=== PATIENT | female | born 1970 | race Caucasian/White ===

== ENCOUNTER 2017-12-08 07:20 | Day surgery (SDC) | payer OTHER ==
[2017-12-07 17:07] VITALS: BMI 33.0
--- NOTE | 2017-12-08 09:11 | HP ---
Satellite [facility] - Chief Complaint Chief Complaint: right hand pain, numbness, weakness History of Present Illness: right CTS History Source: Patient Limitations to Obtaining History: No Limitations - Past Medical History Allergies/Adverse Reactions: Allergies Allergy/AdvReac Type Severity Reaction Status Date / Time Penicillins Allergy Verified 12/08/17 08:20 Cardiovascular: Yes: HTN ...LMP: 03/12/14 - Current Medications Current Medications: Home Medications Medication Instructions Recorded Divalproex Sodium [Depakote] 1,000 mg PO BID 04/17/12 Quetiapine Fumarate [Seroquel -] 350 mg PO HS 04/17/12 Levothyroxine [Synthroid -] 75 mcg PO DAILY 03/25/14 Amlodipine Besylate 5 mg PO DAILY 12/07/17 Hydrochlorothiazide [Hctz -] 12.5 mg PO DAILY 12/07/17 Losartan Potassium 100 mg PO DAILY 12/07/17 Metoprolol Succinate [Toprol Xl] 25 mg PO DAILY 12/07/17 Sertraline HCl [Zoloft -] 50 mg PO DAILY 12/07/17 Satellite Physical Exam - Physical Examination Vital Signs: Vital Signs Period Temp Pulse Resp BP Sys/Davis Pulse Ox Last 24 Hr 97.9 F 98 18 157/98 95 General Appearance: Well Nourished ENT: Clear Lung: Clear to auscultation Heart: Regular rate & rhythm Breasts: Soft Abdomen: Soft Extremities: No edema Satellite Impression/Plan - Impression/Plan Impression: right CTS Operative Procedure: right CTR Date to be Performed: 12/08/17
--- NOTE | 2017-12-08 09:14 | OP ---
Operative Note - Note: Operative Date: 12/08/17 Pre-Operative Diagnosis: right CTS Operation: right CTR, tenosynovectomy Post-Operative Diagnosis: Same as Pre-op Surgeon: Ac Alexander Anesthesiologist/GEM TECHNICIAN: Nessa Sierra MD Anesthesia: Local, MAC Specimens Removed: tenosynovium Estimated Blood Loss (mls): 0 Drains, Volume Out (mls): 0 Blood Volume Replaced (mls): 0 Fluid Volume Replaced (mls): 500 Operative Report Dictated: Yes
[2017-12-08] MEDS ORDERED: MIDAZOLAM HCL 2 MG/2 ML SINGLE DOSE VIAL ONE (09:27)
[2017-12-08] MEDS ORDERED: SUCCINYLCHOLINE CHLORIDE 200 MG/10 ML VIAL ONE (09:29)
[2017-12-08] MEDS ORDERED: PROPOFOL 20 ML ONE (09:29)
[2017-12-08] MEDS ORDERED: CLINDAMYCIN PHOSPHATE 600 MG/4 ML VIAL IVPB ONE (09:47)
[2017-12-08] MEDS ORDERED: CLINDAMYCIN PHOSPHATE 600 MG/4 ML VIAL ONE (09:48)
[2017-12-08] MEDS ORDERED: ONDANSETRON 4 MG/2 ML VIAL IVPUSH PRN (10:24)
[2017-12-08] MEDS ORDERED: oxyCODONE HCL 5 MG TABLET PO PRN (10:24)
[2017-12-08] MEDS ORDERED: LACTATED RINGERS SOLUTION 1,000 ML IV SCH (10:30)
[2017-12-08 10:57] VITALS: TEMP 98
[2017-12-08 12:15] VITALS: BP 130/93; PULSE 95
--- NOTE | 2017-12-08 12:59 | SPEC ---
DATE OF SURGERY: 12/08/2017 PREOPERATIVE DIAGNOSIS: Right carpal tunnel syndrome. POSTOPERATIVE DIAGNOSIS: Right carpal tunnel syndrome. OPERATION: Right carpal tunnel release and tenosynovectomy. SURGEON: Ac Alexander M.D. ASSISTANTS: None. ANESTHESIA: MAC, local injection with 12 mL of 0.5% Marcaine and 1% Lidocaine mix. ANESTHESIOLOGIST: Nessa Sierra MD DRAINS: None. COMPLICATIONS: None. SPECIMENS: Tenosynovium, right wrist. BLOOD LOSS: None. BLOOD GIVEN: None. FLUID REPLACEMENT: 500 mL INDICATIONS: This patient is a 47-year-old female with a preoperative diagnosis of severe right carpal tunnel syndrome. After understanding the potential risks, complications, alternatives and benefits of surgery versus nonsurgical treatment, the patient elected to undergo this procedure. DESCRIPTION OF PROCEDURE: The patient was brought to the operating room, peripheral IV placed and intravenous sedation was given. One gram of intravenous Ancef was given. MAC anesthesia was induced. A tourniquet was applied to the right upper arm and the right upper extremity was prepped and draped in sterile fashion. The entire case was done under 3.8 loupe magnification. A marking pen was utilized to waldemar out a longitudinal incision in an already existing skin crease. Twenty mL of 0.5% Marcaine mixed with 1% Lidocaine was injected in and around the surgical incision. The right upper extremity was elevated, exsanguinated with an Esmarch bandage and the tourniquet inflated to 250 mmHg. A No. 15 scalpel blade was utilized to cut down through the skin. Subcutaneous hemostasis was achieved with the bipolar cautery. Dissection was done through the superficial palmar fascia. Self-retaining retractors were placed into the wound. Under direct visualization, the transverse carpal ligament was transected with a No. 15 scalpel blade, exposing the median nerve and the contents of the carpal tunnel. The distal and proximal extents of the release were completed with a Littler scissor and checked with irrigation and my small finger. They were seen to be complete. Limited dissection was done on the radial side of the median nerve and more extensive dissection was done on the ulnar side of the median nerve. The patients nerve was seen to be quite compressed by epineurium and therefore a limited epineurotomy was performed. A Ragnell retractor was used to gently retract the median nerve in a radial direction. The patient had a lot of tenosynovitis and therefore a tenosynovectomy was performed off all 9 flexor tendons. This was passed off the field as tenosynovium right wrist. The floor of the carpal tunnel was checked. There were no abnormal masses or ganglion cysts. The area was copiously irrigated and washed out and closure begun. Undyed 4-0 Vicryl was used to close the deep dermal layer. Final skin reapproximation was done with horizontal mattress 4-0 nylon sutures. The area was then washed and dried, covered with Xeroform, 4x4s, fluffs between the fingers, Webril and a 4-inch plaster roll was utilized to make a volar splint, which was then wrapped with Nigel and Coban. The tourniquet was taken down after a total tourniquet time of minutes. There were no complications during the case. The patient tolerated the procedure well and was brought to the ambulatory recovery room in stable condition. Kennedy [id number]
--- NOTE | 2017-12-09 13:27 | PATH ---
Surgical Pathology Report Patient Name: JOANNA RECIO [facility]. Rec. #: [id number] /Age/Gender: 1970 (Age: 47) / F Account: [id number] [facility] [facility] Taken: 12/08/2017 Received: 12/08/2017 Reported: 12/09/2017 Physicians: Ac Alexander M.D. Specimen(s) Received RIGHT TENOSYNOVIUM Clinical History Right carpal tunnel syndrome Final Diagnosis TENOSYNOVIUM, RIGHT, EXCISION: BENIGN DENSE FIBROCONNECTIVE TISSUE. Electronically Signed Meenu Jackson M.D. Gross Description Received in formalin labeled "right tenosynovium," is a 1.8 x 1.2 x 0.2 cm aggregate of multiple bernal-yellow, irregular portions of soft tissue, consistent with tenosynovium. The specimen is entirely submitted in one cassette. /12/08/201712/08/2017
== END 2017-12-08 12:31 | disposition home or self-care (01) ==
LOC: JASU-SURG 07:20
PROVIDERS: ATTEND Orthopaedic Surgery
PROC: 01N50ZZ Release Median Nerve, Open Approach (ICD-10-PCS; principal; 2017-12-08 09:00)
DX: G56.01 Carpal tunnel syndrome, right upper limb (principal)
CPT/HCPCS: 88304-TC; 94760

== ENCOUNTER 2018-03-14 06:22 | Emergency (ER) | payer OTHER ==
--- NOTE | 2018-03-14 07:11 | PDOC ---
History of Present Illness - General Chief Complaint: Shortness of Breath Stated Complaint: S.O.B. Time Seen by Provider: 03/14/18 07:09 - History of Present Illness Initial Comments: 03/14/18 07:10 Ms. Nobles is a 47 yo female w/ pmh of HTN, Bipolar disorder, anxiety, s/p partial hysterectomy who presents for evaluation after 2 week history of cough, congestion, increased anxiety, and chest pain with cough. She reports she started taking antibiotics over a week ago proscribed over the phone by her PCP (cannot recall their name) and has finished her entire course, however she does not feel better yet. She has no other complaints at this time. The patient denies headache and dizziness. Denies fever, chills, nausea, vomit, diarrhea and constipation. Denies dysuria, frequency, urgency and hematuria. Allergies: Penicillins Past History - Past Medical History Allergies/Adverse Reactions: Allergies Allergy/AdvReac Type Severity Reaction Status Date / Time Penicillins Allergy Verified 03/14/18 07:14 Home Medications: Ambulatory Orders Divalproex [Depakote -] 1,500 mg PO DAILY 03/14/18 Levothyroxine [Synthroid -] 25 mcg PO DAILY 03/14/18 Quetiapine Fumarate [Seroquel] 350 mg PO DAILY 03/14/18 Sertraline HCl [Zoloft] 50 mg PO DAILY 03/14/18 Anemia: No Asthma: No Cancer: No Cardiac Disorders: No CVA: No COPD: No CHF: No Dementia: No Diabetes: No GI Disorders: No Disorders: No HTN: Yes Hypercholesterolemia: No Liver Disease: No Seizures: No Thyroid Disease: Yes - Surgical History Abdominal Surgery: Yes (Myomectomy) Appendectomy: No Cardiac Surgery: No Cholecystectomy: No Lung Surgery: No Neurologic Surgery: No Orthopedic Surgery: Yes (fx wrist) - Immunization History Immunization Up to Date: Yes - Suicide/Smoking/Psychosocial Hx Smoking Status: Yes Smoking History: Current every day smoker Have you smoked in the past 12 months: Yes Number of Cigarettes Smoked Daily: 15 'Breaking Loose' booklet given: 12/07/17 Hx Alcohol Use: Yes (weekly) Drug/Substance Use Hx: No Substance Use Type: Alcohol Hx Substance Use Treatment: Yes Review of Systems - Review of Systems Comments:: 03/14/18 07:11 GENERAL/CONSTITUTIONAL: No fever or chills. No weakness. HEAD, EYES, EARS, NOSE AND THROAT: No change in vision. No ear pain or discharge. No sore throat. CARDIOVASCULAR: +Pain with cough (now decreased). Occasional shortness of breath RESPIRATORY: +Cough, no wheezing or hemoptysis. GASTROINTESTINAL: No nausea, vomiting, diarrhea or constipation. GENITOURINARY: No dysuria, frequency, or change in urination. MUSCULOSKELETAL: No joint or muscle swelling or pain. No neck or back pain. SKIN: No rash NEUROLOGIC: No headache, vertigo, loss of consciousness, or change in strength/ sensation. ENDOCRINE: No increased thirst. No abnormal weight change HEMATOLOGIC/LYMPHATIC: No anemia, easy bleeding, or history of blood clots. ALLERGIC/IMMUNOLOGIC: No hives or skin allergy. *Physical Exam - Physical Exam Comments: 03/14/18 07:11 GENERAL: Awake, alert, and fully oriented, in no acute distress HEAD: No signs of trauma, normocephalic, atraumatic EYES: PERRLA, EOMI, sclera anicteric, conjunctiva clear ENT: Auricles normal inspection, hearing grossly normal, nares patent, oropharynx clear without exudates. Moist mucosa NECK: Normal ROM, supple, no lymphadenopathy, JVD, or masses LUNGS: +Minor diffuse wheezes, No distress, speaks full sentences. HEART: Regular rate and rhythm, normal S1 and S2, no murmurs, rubs or gallops, peripheral pulses normal and equal bilaterally. ABDOMEN: Soft, nontender, normoactive bowel sounds. No guarding, no rebound. No masses EXTREMITIES: Normal inspection, Normal range of motion, no edema. No clubbing or cyanosis. NEUROLOGICAL: Cranial nerves II through XII grossly intact. Normal speech, normal gait, no focal sensorimotor deficits SKIN: Warm, Dry, normal turgor, no rashes or lesions noted. ED Treatment Course - LABORATORY CBC & Chemistry Diagram: 03/14/18 07:45 03/14/18 07:45 Medical Decision Making - Medical Decision Making 03/14/18 07:44 Ms. Nobles is a 47 yo female w/ pmh as described who presents w/ symptoms of continuing viral illness. EKG/CXR/cardiac panel sent to evaluate for acute process. 03/14/18 09:21 Patient EKG regular rate, regular rhythm, no st elevations or depression, normal access, normal interval, normal EKG. Chest XR negative for acute process. Labs grossly wnl as below. No concern for acute process at this time. Discharging patient with instructions to f/u w/ PCP for further evaluation as needed with medrol pack and z-medardo. Laboratory Results - last 24 hr 03/14/18 03/14/18 07:45 07:45 WBC 5.9 RBC 4.18 Hgb 14.1 Hct 40.0 MCV 95.7 MCH 33.6 MCHC 35.1 RDW 13.7 Plt Count 199 D MPV 7.0 L D Neutrophils % 73.1 Lymphocytes % 20.5 D Monocytes % 3.8 Eosinophils % 1.8 Basophils % 0.8 Nucleated RBC % 0 Sodium 136 Potassium 4.3 Chloride 103 Carbon Dioxide 25 Anion Gap 8 BUN 7 Creatinine 0.5 L Creat Clearance w eGFR > 60 Random Glucose 85 Calcium 8.5 Total Bilirubin 0.3 AST 42 H ALT 70 Alkaline Phosphatase 82 Creatine Kinase 81 Troponin I < 0.02 Total Protein 7.6 Albumin 3.5 TSH 2.78 03/14/18 09:23 *DC/Admit/Observation/Transfer Diagnosis at time of Disposition: Upper respiratory infection Qualifiers: URI type: unspecified URI Qualified Code(s): J06.9 - Acute upper respiratory infection, unspecified - Discharge Dispostion Disposition: HOME Condition at time of disposition: Fair - Referrals Referrals: Scott Sarabia MD [Primary Care Provider] - - Patient Instructions Printed Discharge Instructions: DI for Viral Upper Respiratory Infection -- Adult Additional Instructions: Please return to ER if any pain, fever, chills, or other concerning symptoms. Follow-up with primary care provider for further evaluation later this week. - Post Discharge Activity Forms/Work/School Notes: Back to Work
[2018-03-14 07:13] VITALS: BMI 32.3
[2018-03-14] MEDS ORDERED: ALBUTEROL SO4 2.5/IPRATROPIUM 0.5 INH SOL 3 ML VIAL.NEB. NEB ONE (07:34)
[2018-03-14 07:55] LABS: BASO % 0.8 % (0-2.0); EOS % 1.8 % (0-4.5); HEMOGLOBIN 14.1 GM/dL (10.7-15.3); LYMPH % 20.5 % (8-40); MCH 33.6 pg (25.7-33.7); MCHC 35.1 g/dl (32.0-36.0); MEAN CELL VOLUME 95.7 fl (80-96); MONO % 3.8 % (3.8-10.2); NEUT % 73.1 % (42.8-82.8); PLATELET COUNT 199 K/MM3 (134-434); RBC 4.18 M/mm3 (3.60-5.2); RDW 13.7 % (11.6-15.6); WHITE BLOOD COUNT 5.9 K/mm3 (4.0-10.0)
[2018-03-14 08:38] LABS: ALBUMIN 3.5 g/dl (3.4-5.0); ANION GAP 8 (8-16); BLOOD UREA NITROGEN 7 mg/dL (7-18); CALCIUM 8.5 mg/dL (8.5-10.1); CHLORIDE 103 mmol/L (98-107); CO2 25 mmol/L (21-32); CREATININE 0.5 mg/dL (0.55-1.02); GLUCOSE,RANDOM 85 mg/dL (74-106); POTASSIUM 4.3 mmol/L (3.5-5.1); SGOT/AST 42 U/L (15-37); SGPT/ALT 70 U/L (12-78); SODIUM 136 mmol/L (136-145); TOT PROT 7.6 g/dl (6.4-8.2)
[2018-03-14 08:47] LABS: ALK PHOS 82 U/L (45-117); BILIRUBIN,TOTAL 0.3 mg/dL (0.2-1.0)
[2018-03-14 09:37] VITALS: BP 144/86; PULSE 105; TEMP 98
--- NOTE | 2018-03-14 09:44 | PDOC ---
Attending Attestation - Resident Resident Name: Khalif Eaton - ED Attending Attestation I have performed the following: I have examined & evaluated the patient, The case was reviewed & discussed with the resident, I agree w/resident's findings & plan - HPI HPI: 03/14/18 09:41 47-year-old female active smoker presents with URI symptoms for a few days and persisting cough/chest congestion. No specific exertional chest pressure, just congestion in her chest with occasionally productive cough. 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 Never diagnosed with COPD. - Physicial Exam PE: 03/14/18 09:41 Vitals as noted, O2 sat 98% on room air after nebulizer Seated comfortably in stretcher, speaking full sentences, no acute respiratory distress Heart is regular, lungs are clear, prior noted wheezing resolved after nebulizer. No focally decreased breath sounds, no accessory muscle use No edema - Medical Decision Making 03/14/18 09:43 47-year-old female active smoker presents with persistent bronchitis/reactive airway in the setting of URI. rule out pneumonia, already completed course of antibiotics and has no evidence of acute infectious process. Trial of nebulizers with improvement symptoms Labs, EKG, chest x-ray all within normal limits We'll give course of steroids Primary care follow-up, understands return criteria Heart Score/ECG Review #1 ECG reviewed & interpreted by me at: 07:02 General ECG Interpretation: Sinus Rhythm, Normal Rate (100), Normal Intervals ( qtc 448), No acute ischemic changes
--- NOTE | 2018-03-14 13:33 | EKG ---
Test Reason : Blood Pressure : / mmHG Vent. Rate : 100 BPM Atrial Rate : 100 BPM P-R Int : 146 ms QRS Dur : 080 ms QT Int : 348 ms P-R-T Axes : 048 013 033 degrees QTc Int : 448 ms NORMAL SINUS RHYTHM NORMAL ECG Confirmed by MD Velasquez Edward ([id number]) on 03/14/2018 1:32:53 PM Referred By: Confirmed By:Peng Velasquez MD
== END 2018-03-14 09:36 | disposition home or self-care (01) ==
LOC: JER 06:22
PROC: 3E0F7GC Introduction of Other Therapeutic Substance into Respiratory Tract, Via Natural or Artificial Opening (ICD-10-PCS; principal; 2018-03-14)
DX: J06.9 Acute upper respiratory infection, unspecified (principal); I10 Essential (primary) hypertension; F31.9 Bipolar disorder, unspecified; F41.9 Anxiety disorder, unspecified; F17.210 Nicotine dependence, cigarettes, uncomplicated
CPT/HCPCS: 36415; 71046-TC-FY; 80053; 82550; 84443; 84484; 85025; 93005; 93010; 94640; 99281-25; J7620

== ENCOUNTER 2018-06-20 07:31 | Inpatient (IN) | payer OTHER ==
[2018-06-16 09:46] VITALS: BMI 32.3
--- NOTE | 2018-06-20 08:09 | HP ---
History & Physical Update - Physical Physical: No Change - Assessment Assessment: No Change - Plan Plan: No Change
[2018-06-20] MEDS ORDERED: ROCURONIUM BROMIDE 50 MG/5 ML VIAL ONE ×2 (09:03→11:23)
[2018-06-20] MEDS ORDERED: fentaNYL CITRATE 250 MCG/5 ML VIAL ONE ×2 (09:03→15:57)
[2018-06-20] MEDS ORDERED: PROPOFOL 20 ML ONE (09:03)
[2018-06-20] MEDS ORDERED: MIDAZOLAM HCL 2 MG/2 ML SINGLE DOSE VIAL ONE (09:03)
[2018-06-20] MEDS ORDERED: DEXAMETHASONE SOD PHOSPHATE 4 MG/1 ML VIAL ONE (10:03)
[2018-06-20] MEDS ORDERED: KETOROLAC TROMETHAMINE 30 MG/1 ML VIAL ONE (10:04)
[2018-06-20] MEDS ORDERED: DESFLURANE GAS 240 ML BOTTLE IH ONE (11:01)
[2018-06-20] MEDS ORDERED: oxyCODONE HCL 5 MG TABLET PO PRN (11:14)
[2018-06-20] MEDS ORDERED: ONDANSETRON 4 MG/2 ML VIAL IVPUSH PRN ×2 (11:14→17:58)
[2018-06-20] MEDS ORDERED: LACTATED RINGERS SOLUTION 1,000 ML IV SCH (11:15)
[2018-06-20] MEDS ORDERED: METHYLENE BLUE 1% 10 MG/1 ML VIAL IVPUSH ONE (14:15)
[2018-06-20] MEDS ORDERED: NEOSTIGMINE METHYLSULFATE 0.5 MG/ML - 10 ML MDV ONE (16:32)
[2018-06-20] MEDS ORDERED: GLYCOPYRROLATE 0.2 MG/1 ML VIAL ONE (16:33)
[2018-06-20] MEDS ORDERED: IBUPROFEN 800 MG/8 ML IJ IVPB PRN (17:58)
[2018-06-20] MEDS ORDERED: IBUPROFEN 600 MG TABLET (FP) PO PRN (17:58)
--- NOTE | 2018-06-20 17:59 | OP ---
Operative Note - Note: Operative Date: 06/20/18 Pre-Operative Diagnosis: left ovarian cyst, pelvic adhesions Operation: laparoscopic lysis of pelvic adhesions (extensive/2.5 hrs, with Dr. Headley's assistance), laparoscopic cystorrhaphy (bladder repair, with Dr. Liu's assistance); assisted Dr. Headley with completion of laparoscopic left ovarian cystectomy Findings: INTRAOPERATIVE CONSULTATION from [place]: Multiple adhesions of omentum and a loop of small bowel to left ovarian cyst wall, which was also adherent to anterior abdominal wall and left pelvic sidewall; adhesions taken down with combination blunt, sharp and hot dissection ([place] and scissors, lap Ligasure x1) - took ~2.5 hrs (with Dr. Headley); cyst isolated, entered, suctioned and transected near base and retrieved for specimen; minimal urine output but some hematuria, so methylene blue given IV to evaluate for ureteral injury; tip of Johnson visualized in pelvis indicating very small bladder opening; additional port placed and figure-of-8 2-0 vicryl suture placed by me laparoscopically to repair bladder with Dr. Liu's assistance, who then did cystoscopy and L ureteral stent placement; Dr. Headley closed LLQ port fascia, and I assisted him with skin closure. Post-Operative Diagnosis: Other (left ovarian cyst, pelvic adhesions, intraoperative cystotomy) Surgeon: Elver Friedman Composition Teacher: Terence Headley (& Alexa) Anesthesiologist/SOFTWARE PRODUCT SPECIALIST: Sera Tafoya Anesthesia: General Specimens Removed: left ovarian cyst wall (on Dr. Headley's case) Estimated Blood Loss (mls): 100 Drains & Tubes with Location: 16Fr Johnsno to gravity (by Dr. Liu) Drains, Volume Out (mls): 100 (UOP for whole case) Fluid Volume Replaced (mls): 3,700 (crystalloid, for whole case) Operative Report Dictated: Yes
[2018-06-20] MEDS ORDERED: ACETAMINOPHEN 325 MG TABLET (FP) PO PRN (18:06)
[2018-06-20] MEDS ORDERED: ceFAZolin SODIUM 1 GM VIAL ONE (19:13)
[2018-06-20] MEDS: ELECTROLYTE-148 SOLN 1,000 ML IV SCH (19:45)
[2018-06-20] MEDS: CEFAZOLIN 2 GM/D5W 2 GM/50 ML ML IVPB SCH (20:00)
[2018-06-20] MEDS ORDERED: ceFAZolin 2 GRAM PREMIX BAG IVPB SCH (20:00)
--- NOTE | 2018-06-20 21:05 | OP ---
DATE OF OPERATION: 06/20/2018 PREOPERATIVE DIAGNOSIS: Intraoperative consult for bladder injury during a laparoscopic ovarian cystectomy. UROLOGIST: Deuce Liu MD SURGEONS FOR THE PRIMARY CASE: Terence Headley MD; Elver Friedman MD CONSULT: The patient is a 48-year-old female undergoing a laparoscopic ovarian cystectomy on the left side. She has a known history of cancer with radiation and chemotherapy. During the procedure, the cyst was adherent to the pelvis. During removal of the cyst, it was noted by the primary surgeons that there was a cystotomy inadvertently made. The tip of the Johnson catheter was seen intraperitoneally through the scope. On examination by myself, there was a pinpoint hole the size of the tip of a Johnson in the proximal dome of the bladder. Laparoscopic repair with [id number] suture over the defect was done. Cystoscopy was then performed. No evidence of extravasation of fluid was noted intraperitoneally with the camera during the filling and holding of the bladder. The right ureteral orifice had good, clear efflux of methylene blue. On the left side, there was efflux; however, it was a bit slower. A wire and open-ended 6-Faroese catheter were easily passed up the left ureter into the kidney. Because of the slowness of the transient and the concern on the procedure for the left side, a 6 x 24 double-J ureteral stent was placed without difficulty on the left side. A Johnson catheter was left in place to drain the bladder. DEUCE LIU M.D. [id number]
--- NOTE | 2018-06-20 21:09 | OP ---
DATE OF OPERATION: 06/20/2018 PREOPERATIVE DIAGNOSIS: Pelvic pain, large left ovarian cyst. POSTOPERATIVE DIAGNOSIS: Pelvic pain, large left ovarian cyst, pelvic adhesion. PROCEDURE: Laparoscopy, laparoscopic lysis of bowel and omental adhesions, resection of ovarian cyst, and repair of dome of bladder laparoscopically, and cystoscopy and left ureteral stent. SURGEON: Riky Headley MD; Elver Friedman MD; Candy Cruz MD; and Deuce Samuel MD ESTIMATED BLOOD LOSS: Approximately 200 mL. OPERATIVE REPORT: Patient was taken to the operating room and placed in the dorsal lithotomy position. Johnson catheter was inserted. Sponge on a stick was placed at the vaginal cuff through the vagina. Then the patient was prepped and draped for a pelviscopy. A small infraumbilical skin incision was made. Veress needle was introduced and pneumoperitoneum was established with 4 L. Under direct visualization, the 5-mm trocar was introduced through the anterior abdominal wall to the umbilical area. Then, visualization of the pelvic organs showed dense pelvic adhesions and the ovarian cyst on the left side was not visualized. A 5-mm trocar was introduced through the right hypogastric area under direct vision and an 11-mm trocar on the left hypogastric area under direct vision. At this time, with the bowels were probed and there were dense large and small bowel adhesions and omental adhesions. The adhesions were over the anterior bladder wall and also to the left pelvic sidewall. Because of the dense adhesions, Dr. Elver Friedman of general surgery was called for lysis of bowel adhesions. She arrived and lysed the bowel and omental adhesions with a blunt, sharp, and hot dissection. At this time, when the bowel adhesions were removed, the cyst was seen. A large, multiloculated, clear cyst adherent to the pelvic side wall, deep into the retroperitoneal space almost and anteriorly to the anterior vaginal cuff. At this time, the cyst was grasped, but it was very difficult to see any space to dissect the cyst because of dense adhesions and adherence to the pelvic sidewall. With blunt dissection, some of the cyst wall was detached from the pelvic sidewall. At this time, the cyst was entered. It had clear fluid. The cyst fluid was suctioned. Previous pelvic washing was done at the beginning of the procedure. At this time, the cyst was grasped and with sharp and blunt dissection, meticulously, the cyst was released from the left pelvic side wall and the cyst was also adherent to the left ureter, which was very difficult to visualize because of the adhesions. This cyst was eventually removed after it was peeled off of the pelvic sidewall with Endoshears and cautery. Hemostasis was established. Pelvic cavity was several times irrigated. At this time, the urine output has decreased and there was some bloody urine noted in the Johnson. Therefore, a Johnson was replaced and there was a small 1-cm opening in the dome of the bladder and the Johnson could be visualized through that hole. At this time Dr. Liu, the urologist, was called for a consultation and cystoscopy. He assisted Dr. Friedman and the bladder hu was repaired laparoscopically. At this time Dr. Liu did the cystoscopy and visualization from the abdomen did not show any gross leakage of fluid into the abdominal cavity. He also visualized the urine excretion from both ureteral orifices. Then he inserted a stent in the left ureter because of the extensive surgery, which was done on the left side, close to the ureter. At this time the patient started putting out urine and previously methylene blue was given to the patient. There was no visualization of the dye in the abdominal cavity. The left ureter appeared to be intact. The abdomen was emptied of all of the gasses. The ports were closed with interrupted sutures of 0 Vicryl and skin was closed with 4-[address] Biosyn interrupted mattress sutures. Dr. Friedman assisted during the cystectomy and also during the ovarian cystectomy. RIKY HEADLEY M.D. [id number]
[2018-06-20] MEDS ORDERED: QUEtiapine FUMARATE 300 MG TABLET PO SCH (22:00)
[2018-06-20] MEDS: QUEtiapine FUMARATE 100 MG TABLET (FP) PO SCH (22:20)
[2018-06-20] MEDS: oxyCODONE HCL 5 MG TABLET PO PRN (22:21)
[2018-06-21] MEDS: CEFAZOLIN 2 GM/D5W 2 GM/50 ML ML IVPB SCH ×3 (04:05→19:58)
[2018-06-21] MEDS: oxyCODONE HCL 5 MG TABLET PO PRN ×4 (04:09→19:55)
[2018-06-21] MEDS: LEVOTHYROXINE NA 50 MCG TABLET (FP) PO SCH (06:31)
[2018-06-21] MEDS: ELECTROLYTE-148 SOLN 1,000 ML IV SCH ×2 (06:34→18:20)
[2018-06-21 08:19] LABS: BASO % 0.2 % (0-2.0); EOS % 0.1 % (0-4.5); HEMATOCRIT 34.8 % (32.4-45.2); HEMOGLOBIN 11.7 GM/dL (10.7-15.3); LYMPH % 11.2 % (8-40); MCH 32.6 pg (25.7-33.7); MCHC 33.6 g/dl (32.0-36.0); MEAN CELL VOLUME 97.2 fl (80-96); MEAN PLT VOLUME 7.7 fl (7.5-11.1); MONO % 4.4 % (3.8-10.2); NEUT % 84.1 % (42.8-82.8); PLATELET COUNT 146 K/MM3 (134-434); RBC 3.58 M/mm3 (3.60-5.2); RDW 13.4 % (11.6-15.6); WHITE BLOOD COUNT 5.8 K/mm3 (4.0-10.0)
[2018-06-21 08:58] LABS: CHLORIDE 104 mmol/L (98-107); POTASSIUM 4.3 mmol/L (3.5-5.1); SODIUM 140 mmol/L (136-145)
[2018-06-21 09:11] LABS: ALK PHOS 60 U/L (45-117); ANION GAP 10 MMOL/L (8-16); BILIRUBIN,TOTAL 0.3 mg/dL (0.2-1.0); BLOOD UREA NITROGEN 19 mg/dL (7-18); CALCIUM 8.6 mg/dL (8.5-10.1); CO2 26 mmol/L (21-32); CREATININE 0.7 mg/dL (0.55-1.02); GLUCOSE,RANDOM 93 mg/dL (74-106); SGOT/AST 139 U/L (15-37); SGPT/ALT 131 U/L (12-78); TOT PROT 6.2 g/dl (6.4-8.2)
[2018-06-21] MEDS: amLODIPine BESYLATE 10 MG TABLET (FP) PO SCH (09:39)
[2018-06-21] MEDS: VALSARTAN 160 MG TABLET (UD) PO SCH (09:39)
[2018-06-21] MEDS: SERTRALINE HCL 50 MG TABLET (FP) PO SCH (09:40)
[2018-06-21] MEDS: ALBUTEROL SO4 8 GM HFA INHALER IH PRN ×2 (09:44→14:52)
[2018-06-21] MEDS ORDERED: PATIENT'S OWN MEDICATION (NON-FORMULARY) (Amlodipine Bes/Olmesartan Med [Amlodipine-Olmesa PO SCH (10:00)
--- NOTE | 2018-06-21 10:36 | PN ---
Progress Note (short form) - Note Progress Note: pod 1 doing well, ambulating , sitting on bed , thompson inplace , pinkish urine , adequate CBC, BMP 06/21/18 07:00 06/21/18 07:00 Last Vital Signs Temp Pulse Resp BP Pulse Ox 97.9 F 95 H 20 130/71 95 06/21/18 06:00 06/21/18 06:00 06/21/18 06:00 06/21/18 06:00 06/20/18 19:45 abdomen soft, no distension, no cva . BS present no vaginal bleeding no calf tenderness no vaginal discharge, or drainage impression pod 1 doing well, has thompson, adequate out put plan ambulate, cont. iv antibiotic procedure and case complication discussed with patient in detail
[2018-06-21] MEDS: ENOXAPARIN NA (PORCINE) 40 MG/0.4 ML DISP.SYRIN SQ SCH (12:38)
--- NOTE | 2018-06-21 13:43 | PN ---
Progress Note, Physician Chief Complaint: POD #1 - Current Medication List Current Medications: Active Medications Acetaminophen (Tylenol -) 650 mg PO Q6H PRN PRN Reason: Pain Level 4 - 10 Albuterol Sulfate (Ventolin Hfa Inhaler -) 2 puff IH Q4H PRN PRN Reason: ALLERGIES Last Admin: 06/21/18 09:44 Dose: 2 inh Amlodipine Besylate (Norvasc -) 10 mg PO DAILY [facility] Last Admin: 06/21/18 09:39 Dose: 10 mg Enoxaparin Sodium (Lovenox -) 40 mg SQ DAILY [facility] Last Admin: 06/21/18 12:38 Dose: 40 mg Fluticasone Propionate (Flonase -) 1 spray NS DAILY [facility] Parenteral Electrolytes (Plasma-Lyte 148 -) 1,000 mls @ 125 mls/hr IV ASDIR [facility] Last Admin: 06/21/18 06:34 Dose: 125 mls/hr Cefazolin Sodium/Dextrose (Ancef 2 Gm Premixed Ivpb -) 2 gm in 50 mls @ 100 mls /hr IVPB Q8H [facility] Last Admin: 06/21/18 12:38 Dose: 100 mls/hr Ibuprofen (Motrin -) 600 mg PO Q6H PRN PRN Reason: FEVER Ibuprofen (Caldolor Injection -) 800 mg IVPB Q6H PRN PRN Reason: Fever - If PO not effective. Levothyroxine Sodium (Synthroid -) 50 mcg PO DAILY@0700 [facility] Last Admin: 06/21/18 06:31 Dose: 50 mcg Ondansetron HCl (Zofran Injection) 4 mg IVPUSH Q6H PRN PRN Reason: NAUSEA Oxycodone HCl (Roxicodone -) 10 mg PO Q4H PRN PRN Reason: PAIN LEVEL 6-10 Last Admin: 06/21/18 08:24 Dose: 10 mg Oxycodone HCl (Roxicodone -) 5 mg PO Q4H PRN PRN Reason: PAIN LEVEL 1-5 Last Admin: 06/21/18 04:09 Dose: 5 mg Quetiapine Fumarate (Seroquel -) 350 mg PO [facility] Last Admin: 06/20/18 22:20 Dose: 350 mg Sertraline HCl (Zoloft -) 50 mg PO DAILY [facility] Last Admin: 06/21/18 09:40 Dose: 50 mg Valsartan (Diovan -) 320 mg PO DAILY [facility] Last Admin: 06/21/18 09:39 Dose: 320 mg - Objective Vital Signs: Vital Signs Temperature 97.9 F 06/21/18 06:00 Pulse Rate 95 H 06/21/18 06:00 Respiratory Rate 20 06/21/18 06:00 Blood Pressure 130/71 06/21/18 06:00 O2 Sat by Pulse Oximetry (%) 95 06/20/18 19:45 Labs: CBC, BMP 06/21/18 07:00 06/21/18 07:00 Assessment/Plan Doing well after surgery yesterday. No apparent anesthetic issues/complications - she is sitting comfortably in bed, although she is a little upset that her surgery was a bit more complicated than she expected.
[2018-06-21] MEDS ORDERED: PT OWN MED DRAWER 7, Y5N ONE (14:49)
[2018-06-21] MEDS: FLUTICASONE PROP 0.05% 16 GM NASAL SPRAY NS SCH (14:53)
--- NOTE | 2018-06-21 15:32 | PATH ---
Cytology Non-Gynecological Report Patient Name: JOANNA RECIO [facility] [place]. Rec. #: [id number] /Age/Gender: 1970 (Age: 48) / F Account: [id number] Location: [facility] MED/SURG Taken: 06/20/2018 Received: 06/20/2018 Reported: 06/21/2018 Physicians: Terence Headley M.D. Specimen(s) Received PELVIC WASHING Clinical History Left ovarian cyst Final Diagnosis PELVIC WASHING FOR CYTOLOGY: SATISFACTORY FOR EVALUATION. NO MALIGNANT CELLS IDENTIFIED. MESOTHELIAL CELLS AND SCANT FIBROADIPOSE TISSUE PRESENT. Comment: See concurrent material ([id number]). Electronically Signed Meenu Jackson M.D. Gross Description Approximately 20 cc of yellow fluid received fresh. Two cytofunnels prepared which are Diff-Quik and Pap stained. One cellblock prepared.
[2018-06-21] MEDS: QUEtiapine FUMARATE 100 MG TABLET (FP) PO SCH (22:30)
[2018-06-22] MEDS: ALBUTEROL SO4 8 GM HFA INHALER IH PRN (03:43)
[2018-06-22] MEDS: oxyCODONE HCL 5 MG TABLET PO PRN ×4 (03:44→21:22)
[2018-06-22] MEDS: CEFAZOLIN 2 GM/D5W 2 GM/50 ML ML IVPB SCH ×3 (03:45→21:18)
[2018-06-22] MEDS: LEVOTHYROXINE NA 50 MCG TABLET (FP) PO SCH (06:49)
[2018-06-22] MEDS ORDERED: PT OWN MED DRAWER 7, Y5N ONE ×2 (10:21→21:07)
--- NOTE | 2018-06-22 10:22 | PN ---
Progress Note, Physician History of Present Illness: Pt had laparoscopic left ovarian cystectomy with intraoperative consult for lysis of pelvic adhesions, complicated by small bladder perforation, sutured intraoperatively, followed by cystoscopy and left ureteral stent by urology. She has Johnson catheter, and is seen in her room in bed. She has been up to ambulate some, and is tolerating diet. Urine is light yellow, though bag still has some residual blue dye in it. Her pain has been manageable with meds. - Current Medication List Current Medications: Active Medications Acetaminophen (Tylenol -) 650 mg PO Q6H PRN PRN Reason: Pain Level 4 - 10 Albuterol Sulfate (Ventolin Hfa Inhaler -) 2 puff IH Q4H PRN PRN Reason: ALLERGIES Last Admin: 06/22/18 03:43 Dose: 2 inh Amlodipine Besylate (Norvasc -) 10 mg PO DAILY [facility] Last Admin: 06/21/18 09:39 Dose: 10 mg Divalproex Sodium (Depakote -) 1,500 mg PO DAILY [facility] Docusate Sodium (Colace -) 100 mg PO BID PRN PRN Reason: CONSTIPATION Enoxaparin Sodium (Lovenox -) 40 mg SQ DAILY [facility] Last Admin: 06/21/18 12:38 Dose: 40 mg Fluticasone Propionate (Flonase -) 1 spray NS DAILY [facility] Last Admin: 06/21/18 14:53 Dose: 1 spray Parenteral Electrolytes (Plasma-Lyte 148 -) 1,000 mls @ 125 mls/hr IV ASDIR [facility] Last Admin: 06/21/18 18:20 Dose: Not Given Cefazolin Sodium/Dextrose (Ancef 2 Gm Premixed Ivpb -) 2 gm in 50 mls @ 100 mls /hr IVPB Q8H [facility] Last Admin: 06/22/18 03:45 Dose: 100 mls/hr Ibuprofen (Motrin -) 600 mg PO Q6H PRN PRN Reason: FEVER Ibuprofen (Caldolor Injection -) 800 mg IVPB Q6H PRN PRN Reason: Fever - If PO not effective. Levothyroxine Sodium (Synthroid -) 50 mcg PO DAILY@0700 [facility] Last Admin: 06/22/18 06:49 Dose: 50 mcg Ondansetron HCl (Zofran Injection) 4 mg IVPUSH Q6H PRN PRN Reason: NAUSEA Oxycodone HCl (Roxicodone -) 10 mg PO Q4H PRN PRN Reason: PAIN LEVEL 6-10 Last Admin: 06/22/18 03:44 Dose: 10 mg Oxycodone HCl (Roxicodone -) 5 mg PO Q4H PRN PRN Reason: PAIN LEVEL 1-5 Last Admin: 06/21/18 04:09 Dose: 5 mg Quetiapine Fumarate (Seroquel -) 350 mg PO HS [facility] Last Admin: 06/21/18 22:30 Dose: 350 mg Sertraline HCl (Zoloft -) 50 mg PO DAILY [facility] Last Admin: 06/21/18 09:40 Dose: 50 mg Valsartan (Diovan -) 320 mg PO DAILY [facility] Last Admin: 06/21/18 09:39 Dose: 320 mg - Objective Vital Signs: Vital Signs Temperature 98.1 F 06/22/18 06:00 Pulse Rate 94 H 06/22/18 06:00 Respiratory Rate 20 06/22/18 06:00 Blood Pressure 119/71 06/22/18 06:00 O2 Sat by Pulse Oximetry (%) 95 06/20/18 19:45 Constitutional: Yes: No Distress, Calm, Obese Eyes: Yes: Conjunctiva Clear, EOM Intact HENT: Yes: Atraumatic, Normocephalic Gastrointestinal: Yes: Soft, Abdomen, Obese, Distention, Tenderness (mild, BLQ, suprapubic and incisional). No: Tenderness, Rebound Genitourinary: Yes: Johnson Present. No: Hematuria (no gross hematuria) Extremities: No: Cool, Cyanosis Integumentary: Yes: Incision (x4 dressed). No: Jaundice, Rash Wound/Incision: Yes: Steri Strips (under dressings), Dressing Dry and Intact (x4 ). No: Dressing Removed Neurological: Yes: Alert, Oriented Labs: no new labs Problem List - Problems (1) Left ovarian cyst Code(s): N83.202 - UNSPECIFIED OVARIAN CYST, LEFT SIDE (2) Cystadenoma of left ovary Assessment/Plan: POD2 s/p laparoscopic left ovarian cystectomy (by CLAIMS SUPERVISOR, with assistants including me) with extensive lysis of pelvic adhesions (by me), complicated by bladder perforation, repaired laparoscopically (by me), and cysto with L ureteral stent by urology, Johnson placement Pathology shows serous cystadenoma. She is doing well overall. Pain controlled with po meds, tolerating diet, ambulating. Johnson to stay ~2 wks or as per urology, with cysto prior to removal. Defer to CLAIMS SUPERVISOR for primary management. Please call for any questions or issues. Code(s): D27.1 - BENIGN NEOPLASM OF LEFT OVARY (3) Bladder perforation, intraoperative Assessment/Plan: s/p intraoperative repair Urology to follow Johnson to stay per them No gross hematuria Urine yellow now Code(s): N99.72 - ACCIDENTAL PNCTR & LAC OF A SYS ORG DURING OTH PROCEDURE (4) Pelvic adhesions Assessment/Plan: s/p extensive laparoscopic lysis ok to follow up after discharge with CLAIMS SUPERVISOR, does not need to see me in clinic Code(s): N73.6 - FEMALE PELVIC PERITONEAL ADHESIONS (POSTINFECTIVE) (5) Obesity (BMI 30.0-34.9) Code(s): E66.9 - OBESITY, UNSPECIFIED
[2018-06-22] MEDS: VALSARTAN 160 MG TABLET (UD) PO SCH (10:23)
[2018-06-22] MEDS: FLUTICASONE PROP 0.05% 16 GM NASAL SPRAY NS SCH (10:24)
[2018-06-22] MEDS: ENOXAPARIN NA (PORCINE) 40 MG/0.4 ML DISP.SYRIN SQ SCH (10:24)
[2018-06-22] MEDS: amLODIPine BESYLATE 10 MG TABLET (FP) PO SCH (10:25)
[2018-06-22] MEDS: SERTRALINE HCL 50 MG TABLET (FP) PO SCH (10:26)
[2018-06-22] MEDS: DOCUSATE SODIUM 100 MG CAPSULE (FP) PO PRN (10:26)
[2018-06-22] MEDS ORDERED: DIVALPROEX SODIUM 500 MG TABLET E.C. PO SCH (10:30)
[2018-06-22] MEDS ORDERED: DIVALPROEX SODIUM 500 MG TABLET E.C. PO ONE (15:30)
--- NOTE | 2018-06-22 16:13 | PATH ---
Surgical Pathology Report Patient Name: JOANNA RECIO Med. Rec. #: [id number] /Age/Gender: 1970 (Age: 48) / F Account: [id number] Location: [facility] MED/SURG Taken: 06/20/2018 Received: 06/21/2018 Reported: 06/22/2018 Physicians: Terence Headley M.D. Specimen(s) Received CYST WALL Clinical History Ovarian cyst left side Final Diagnosis CYST WALL, LEFT, LAPAROSCOPIC OVARIAN CYSTECTOMY: FRAGMENTS OF CYST WALL CONSISTENT WITH SEROUS CYSTADENOMA. FRAGMENTS OF MATURE FIBROADIPOSE TISSUE. Comment: See concurrent cytology ([id number]). Electronically Signed Meenu Jackson M.D. Gross Description Received in formalin labeled "cyst wall," is a 7.5 x 3.5 x 0.4 cm aggregate of multiple hanley-brown soft tissue fragments, possibly consistent with portions of a cyst wall. There is yellow lobulated adipose tissue also present within the same container. Molding Machine Setter sections are submitted in 4 cassettes. /06/21/2018 saudi06/21/2018
[2018-06-22] MEDS: ELECTROLYTE-148 SOLN 1,000 ML IV SCH (19:48)
[2018-06-22] MEDS: QUEtiapine FUMARATE 100 MG TABLET (FP) PO SCH (21:19)
[2018-06-22] MEDS ORDERED: DIVALPROEX NA *ER* EXTEND REL 500 MG TABLET.SA (FP) PO SCH (22:00)
--- NOTE | 2018-06-22 22:29 | PN ---
Progress Note (short form) - Note Progress Note: pod 2, ambulating , has mild burning suprapubic area, no vaginal discharge CBC, BMP 06/21/18 07:00 06/21/18 07:00 Last Vital Signs Temp Pulse Resp BP Pulse Ox 98.7 F 103 H 20 144/75 95 06/22/18 18:08 06/22/18 18:08 06/22/18 18:08 06/22/18 18:08 06/20/18 19:45 abdomen soft, mild distension, no rebound, no rigidity , BS present incision dry no calf tenderness impression s/p laparoscopy lysis pelvic adhesion , LT ovarian cystectomy, cystadenoma. laparoscopic repair of bladder injury , urine out put adequate , afebrile plan cont iv antibiotic ambulate urology follow up plan for D/C home in am if afebrile
[2018-06-23] MEDS: CEFAZOLIN 2 GM/D5W 2 GM/50 ML ML IVPB SCH (03:23)
[2018-06-23] MEDS: LEVOTHYROXINE NA 50 MCG TABLET (FP) PO SCH (05:59)
[2018-06-23] MEDS: oxyCODONE HCL 5 MG TABLET PO PRN (06:43)
[2018-06-23 06:53] VITALS: TEMP 98
[2018-06-23 07:44] LABS: BASO % 0.4 % (0-2.0); EOS % 2.3 % (0-4.5); HEMATOCRIT 35.5 % (32.4-45.2); HEMOGLOBIN 11.9 GM/dL (10.7-15.3); LYMPH % 20.2 % (8-40); MCH 32.7 pg (25.7-33.7); MCHC 33.6 g/dl (32.0-36.0); MEAN CELL VOLUME 97.5 fl (80-96); MEAN PLT VOLUME 7.2 fl (7.5-11.1); MONO % 5.1 % (3.8-10.2); PLATELET COUNT 168 K/MM3 (134-434); RBC 3.64 M/mm3 (3.60-5.2); RDW 13.2 % (11.6-15.6); WHITE BLOOD COUNT 5.5 K/mm3 (4.0-10.0)
--- NOTE | 2018-06-23 08:24 | DS ---
Physical Exam-FACILITIES SPECIALIST Vital Signs: Vital Signs Temperature 98.0 F 06/23/18 06:00 Pulse Rate 82 06/23/18 06:00 Respiratory Rate 18 06/23/18 06:00 Blood Pressure 122/76 06/23/18 06:00 O2 Sat by Pulse Oximetry (%) 95 06/20/18 19:45 Constitutional: Yes: Well Nourished, No Distress, Calm Eyes: Yes: WNL, Conjunctiva Clear, EOM Intact HENT: Yes: WNL, Atraumatic, Normocephalic Neck: Yes: WNL, Supple, Trachea Midline Cardiovascular: Yes: WNL, Regular Rate and Rhythm Respiratory: Yes: WNL, Regular, CTA Bilaterally Gastrointestinal: Yes: WNL ...Rectal Exam: Yes: WNL Renal/: Yes: WNL Breast(s): Yes: WNL Musculoskeletal: Yes: WNL Extremities: Yes: WNL Edema: No Integumentary: Yes: WNL Wound/Incision: Yes: Clean/Dry, Well Approximated, Sutures Intact Neurological: Yes: WNL, Alert, Oriented ...Motor Strength: WNL Psychiatric: Yes: WNL, Alert, Oriented Labs: CBC, BMP 06/23/18 07:20 Discharge Summary Reason For Visit: OTHER OVARIAN CYST LEFT SIDE Current Active Problems Bladder perforation, intraoperative (Acute) Cystadenoma of left ovary (Acute) Left ovarian cyst (Acute) Obesity (BMI 30.0-34.9) (Acute) Pelvic adhesions (Acute) Procedures: Principal: laparoscopic ovarian cystectomy. lysis of pelvic adhesions,. repair of bladder injury. cystoscopy, LY ureter stent Condition: Good - Instructions Diet, Activity, Other Instructions: REGULAR DIET, FOLLOW UP OFFICE 2 WEEKS, IF PAIN, FEVER, , CALL MD make appointment with urologist DR Naylor for 2 weeks Referrals: Terence Headley MD [Staff Physician] - Disposition: HOME - Home Medications Comprehensive Discharge Medication List: Ambulatory Orders Divalproex [Depakote -] 1,500 mg PO DAILY 03/14/18 Levothyroxine [Synthroid -] 50 mcg PO DAILY 03/14/18 Quetiapine Fumarate [Seroquel] 350 mg PO DAILY 03/14/18 Sertraline HCl [Zoloft] 50 mg PO DAILY 03/14/18 Albuterol Sulfate [Proair Hfa] 2 amp IH PRN PRN 06/16/18 Fluticasone Prop 0.05% Nasal [Flonase -] 1 spray IH DAILY 06/16/18 Amlodipine Bes/Olmesartan Med [Amlodipine-Olmesartan 10-40 mg] 1 each PO DAILY 06/20/18 Diphenhydramine HCl [Benadryl -] 25 mg PO PRN PRN 06/20/18 Ibuprofen [Motrin -] 400 mg PO TID #90 tablet 06/22/18 Nitrofurantoin Monohyd/M-Cryst [Macrobid -] 100 mg PO BID #14 capsule 06/22/18
--- NOTE | 2018-06-23 08:28 | PN ---
Progress Note (short form) - Note Progress Note: pod 3 doing well, passing gas, tolerating diet, urine out put is adequate CBC, BMP 06/23/18 07:20 Last Vital Signs Temp Pulse Resp BP Pulse Ox 98.0 F 82 18 122/76 95 06/23/18 06:00 06/23/18 06:00 06/23/18 06:00 06/23/18 06:00 06/20/18 19:45 abdomen soft, no distension, BS present, no cva incisions dry, clean, no calf tenderness pod 3 afebrile, plan d/c home, instruction given follow up urologist 2 weeks for cystogram and removal of thompson
[2018-06-23 08:42] LABS: ANION GAP 8 MMOL/L (8-16); BLOOD UREA NITROGEN 13 mg/dL (7-18); CALCIUM 8.7 mg/dL (8.5-10.1); CHLORIDE 98 mmol/L (98-107); CO2 31 mmol/L (21-32); GLUCOSE,RANDOM 89 mg/dL (74-106); POTASSIUM 4.3 mmol/L (3.5-5.1); SODIUM 137 mmol/L (136-145)
[2018-06-23 08:44] LABS: CREATININE 0.5 mg/dL (0.55-1.02)
[2018-06-23] MEDS ORDERED: PT OWN MED DRAWER 7, Y5N ONE ×3 (09:06→10:27)
[2018-06-23] MEDS: amLODIPine BESYLATE 10 MG TABLET (FP) PO SCH (09:13)
[2018-06-23] MEDS: VALSARTAN 160 MG TABLET (UD) PO SCH (09:13)
[2018-06-23] MEDS: ENOXAPARIN NA (PORCINE) 40 MG/0.4 ML DISP.SYRIN SQ SCH (09:13)
[2018-06-23] MEDS: SERTRALINE HCL 50 MG TABLET (FP) PO SCH (09:13)
[2018-06-23] MEDS ORDERED: DIVALPROEX NA *ER* EXTEND REL 500 MG TABLET.SA (FP) PO SCH (10:00)
[2018-06-23 10:12] VITALS: BP 148/85; PULSE 89
[2018-06-23] MEDS: DOCUSATE SODIUM 100 MG CAPSULE (FP) PO PRN (10:30)
[2018-06-23] MEDS: FLUTICASONE PROP 0.05% 16 GM NASAL SPRAY NS SCH (10:30)
== END 2018-06-23 11:30 | disposition home or self-care (01) | DRG 742 ==
LOC: JASU-SURG 07:31 → JSAMEDAYSX 17:47 → J8W 20:53
PROVIDERS: ADMIT Obstetrics & Gynecology; ATTEND Obstetrics & Gynecology
PROC: 0TQB4ZZ Repair Bladder, Percutaneous Endoscopic Approach (ICD-10-PCS; 2018-06-20)
PROC: 0T778DZ Dilation of Left Ureter with Intraluminal Device, Via Natural or Artificial Opening Endoscopic (ICD-10-PCS; 2018-06-20)
PROC: 0JNC3ZZ Release Pelvic Region Subcutaneous Tissue and Fascia, Percutaneous Approach (ICD-10-PCS; principal; 2018-06-20 09:00)
PROC: 0UT18ZZ Resection of Left Ovary, Via Natural or Artificial Opening Endoscopic (ICD-10-PCS; 2018-06-20 09:00)
PROC: 0DNW4ZZ Release Peritoneum, Percutaneous Endoscopic Approach (ICD-10-PCS; 2018-06-20 09:00)
PROC: 0DNU4ZZ Release Omentum, Percutaneous Endoscopic Approach (ICD-10-PCS; 2018-06-20 09:00)
DX: N83.202 Unspecified ovarian cyst, left side (principal); S37.29XA Other injury of bladder, initial encounter; N99.72 Accidental puncture and laceration of a genitourinary system organ or structure during other procedure; N73.6 Female pelvic peritoneal adhesions (postinfective); X58.XXXA Exposure to other specified factors, initial encounter; Y92.234 Operating room of hospital as the place of occurrence of the external cause; D27.1 Benign neoplasm of left ovary; R10.2 Pelvic and perineal pain; E66.9 Obesity, unspecified; Z68.32 Body mass index [BMI] 32.0-32.9, adult; I10 Essential (primary) hypertension; E03.9 Hypothyroidism, unspecified
CPT/HCPCS: 36415; 71045-TC-FY; 74018-TC-FY; 80048; 80053; 85025; 88108; 88305-TC; 88307-TC; 94760

== ENCOUNTER → 2018-06-30 | Day surgery (SDC) | payer OTHER | END | disposition home or self-care (01) | LOC: JRADIR 12:03 | PROVIDERS: ATTEND Urology | PROC: BT00YZZ Plain Radiography of Bladder using Other Contrast (ICD-10-PCS; principal; 2018-06-30) | DX: S37.29XA Other injury of bladder, initial encounter (principal); X58.XXXA Exposure to other specified factors, initial encounter; Y93.9 Activity, unspecified; Y92.530 Ambulatory surgery center as the place of occurrence of the external cause; Y99.9 Unspecified external cause status | CPT/HCPCS: 51600; 74430-TC-FY ==

== ENCOUNTER 2019-04-26 14:57 | Inpatient (IN) | payer OTHER ==
[2019-04-26 15:05] VITALS: BMI 32.3
[2019-04-26] MEDS ORDERED: ASPIRIN 81 MG CHEWABLE TABLETS PO ONE (15:05)
--- NOTE | 2019-04-26 15:05 | PDOC ---
Rapid Medical Evaluation Chief Complaint: Chest Pain Time Seen by Provider: 04/26/19 15:03 Medical Evaluation: Allergies Allergy/AdvReac Type Severity Reaction Status Date / Time Penicillins Allergy Verified 06/16/18 10:04 04/26/19 15:04 I have performed a brief in-person evaluation of this patient. The patient presents with a chief complaint of: midsternal CP while doing chores Pertinent physical exam findings: right anterior coarse breath sounds I have ordered the following: cardiac w/u The patient will proceed to the ED for further evaluation. Discharge Disposition - Diagnosis Chest pain - Referrals - Patient Instructions - Post Discharge Activity
[2019-04-26] MEDS ORDERED: ASPIRIN 81 MG CHEWABLE TABLETS ONE (15:12)
[2019-04-26 15:43] LABS: BASO % 0.6 % (0-2.0); EOS % 2.3 % (0-4.5); HEMATOCRIT 37.1 % (32.4-45.2); LYMPH % 21.6 % (8-40); MCH 33.9 pg (25.7-33.7); MEAN CELL VOLUME 96.9 fl (80-96); MONO % 3.6 % (3.8-10.2); NEUT % 71.9 % (42.8-82.8); RBC 3.83 M/mm3 (3.60-5.2); RDW 13.5 % (11.6-15.6); WHITE BLOOD COUNT 6.1 K/mm3 (4.0-10.0)
[2019-04-26 15:50] LABS: PLATELET COUNT 169 K/MM3 (134-434)
--- NOTE | 2019-04-26 15:51 | PDOC ---
History of Present Illness - General Chief Complaint: Chest Pain Stated Complaint: SENT BY PCP/ CHEST PAIN Time Seen by Provider: 04/26/19 15:03 Past History - Past Medical History Allergies/Adverse Reactions: Allergies Allergy/AdvReac Type Severity Reaction Status Date / Time Penicillins Allergy Verified 04/26/19 15:05 Home Medications: Ambulatory Orders Divalproex [Depakote -] 1,500 mg PO DAILY 03/14/18 Levothyroxine [Synthroid -] 50 mcg PO DAILY 03/14/18 Quetiapine Fumarate [Seroquel] 350 mg PO DAILY 03/14/18 Sertraline HCl [Zoloft] 50 mg PO DAILY 03/14/18 Albuterol Sulfate [Proair Hfa] 2 amp IH PRN PRN 06/16/18 Fluticasone Prop 0.05% Nasal [Flonase -] 1 spray IH DAILY 06/16/18 Amlodipine Bes/Olmesartan Med [Amlodipine-Olmesartan 10-40 mg] 1 each PO DAILY 06/20/18 Diphenhydramine HCl [Benadryl -] 25 mg PO PRN PRN 06/20/18 Ibuprofen [Motrin -] 400 mg PO TID #90 tablet 06/22/18 Nitrofurantoin Monohyd/M-Cryst [Macrobid -] 100 mg PO BID #14 capsule 06/22/18 Anemia: No Asthma: No Cancer: No Cardiac Disorders: No CVA: No COPD: No CHF: No Dementia: No Diabetes: No GI Disorders: No Disorders: No HTN: Yes Hypercholesterolemia: No Liver Disease: No Seizures: No Thyroid Disease: Yes (HYPOTHROIDISM) - Surgical History Abdominal Surgery: Yes (Myomectomy) Appendectomy: No Cardiac Surgery: No Cholecystectomy: No Lung Surgery: No Neurologic Surgery: No Orthopedic Surgery: Yes (fx wrist,OPEN REDUCTION) - Immunization History Immunization Up to Date: Yes - Suicide/Smoking/Psychosocial Hx Smoking Status: Yes Smoking History: Current every day smoker Have you smoked in the past 12 months: Yes Number of Cigarettes Smoked Daily: 20 Information on smoking cessation initiated: No 'Breaking Loose' booklet given: 06/20/18 Hx Alcohol Use: Yes (3x a week) Drug/Substance Use Hx: No Substance Use Type: Alcohol Hx Substance Use Treatment: Yes *Physical Exam - Vital Signs Last Vital Signs Temp Pulse Resp BP Pulse Ox 97.4 F L 99 H 18 113/68 96 04/26/19 15:02 04/26/19 15:02 04/26/19 15:02 04/26/19 15:02 04/26/19 15:02 ED Treatment Course - LABORATORY CBC & Chemistry Diagram: 04/26/19 15:33 04/26/19 15:33 - ADDITIONAL ORDERS Additional order review: 04/26/19 15:33 RBC 3.83 MCV 96.9 H MCHC 35.0 RDW 13.5 MPV 7.0 L Neutrophils % 71.9 Lymphocytes % 21.6 Monocytes % 3.6 L Eosinophils % 2.3 Basophils % 0.6 - Medications Given in the ED: ED Medications Discontinued Medications Generic Name Dose Route Start Last Admin Trade Name Freq PRN Reason Stop Dose Admin Aspirin 162 mg 04/26/19 15:05 04/26/19 15:14 Asa - PO 04/26/19 15:06 162 mg ONCE ONE Administration *DC/Admit/Observation/Transfer Diagnosis at time of Disposition: Chest pain - Referrals - Patient Instructions - Post Discharge Activity
[2019-04-26 16:12] LABS: ALBUMIN 3.6 g/dl (3.4-5.0); ALK PHOS 95 U/L (45-117); ANION GAP 14 MMOL/L (8-16); BILIRUBIN,TOTAL 0.3 mg/dL (0.2-1); BLOOD UREA NITROGEN 14.6 mg/dL (7-18); CALCIUM 9.2 mg/dL (8.5-10.1); CHLORIDE 101 mmol/L (98-107); CO2 23 mmol/L (21-32); CREATININE 0.7 mg/dL (0.55-1.3); GLUCOSE,RANDOM 133 mg/dL (74-106); POTASSIUM 3.6 mmol/L (3.5-5.1); SGOT/AST 91 U/L (15-37); SGPT/ALT 92 U/L (13-61); SODIUM 138 mmol/L (136-145); TOT PROT 7.5 g/dl (6.4-8.2)
[2019-04-26 16:32] LABS: INR 0.98 (0.83-1.09); PROTHROMBIN TIME (PATIENT) 11.6 SEC (9.7-13.0)
--- NOTE | 2019-04-26 16:32 | PDOC ---
History of Present Illness - General Chief Complaint: Chest Pain Stated Complaint: SENT BY PCP/ CHEST PAIN Time Seen by Provider: 04/26/19 15:03 History Source: Patient Exam Limitations: Other (Patient noncompliant with history, demands we call her PCP for HPI.) - History of Present Illness Initial Comments: 04/26/19 16:11 Source: Pt reluctant to answer questions, minimally cooperative with H&P HPI: 49yo woman smoker with pmh HTN, bipolar disorder, anxiety, s/p partial hysterectomy presenting with chest pain and shortness of breath for two weeks. Pt reports she was in her usual state of health until her father was hospitalized for two weeks. She then began to experience chest heaviness / shortness of breath intermittently until current presentation. She reports that she recently called 911 for her father and he refused medical treatment causing her additional pain. She refuses to further characterize her pain and demands that the team call Dr. Sarabia because "he knows my history" and "he called me to say he wanted to admit me." She is minimally redirectable. States that she smokes too much, denies illicit drug use, endorses recent heavy alcohol use. All: Penicillin 30 years ago, denies anaphylaxis Past History - Past Medical History Allergies/Adverse Reactions: Allergies Allergy/AdvReac Type Severity Reaction Status Date / Time Penicillins Allergy Verified 04/26/19 15:05 Home Medications: Ambulatory Orders Divalproex [Depakote -] 1,500 mg PO DAILY 03/14/18 Levothyroxine [Synthroid -] 50 mcg PO DAILY 03/14/18 Quetiapine Fumarate [Seroquel] 350 mg PO DAILY 03/14/18 Sertraline HCl [Zoloft] 50 mg PO DAILY 03/14/18 Albuterol Sulfate [Proair Hfa] 2 amp IH PRN PRN 06/16/18 Fluticasone Prop 0.05% Nasal [Flonase -] 1 spray IH DAILY 06/16/18 Amlodipine Bes/Olmesartan Med [Amlodipine-Olmesartan 10-40 mg] 1 each PO DAILY 06/20/18 Diphenhydramine HCl [Benadryl -] 25 mg PO PRN PRN 06/20/18 Ibuprofen [Motrin -] 400 mg PO TID #90 tablet 06/22/18 Nitrofurantoin Monohyd/M-Cryst [Macrobid -] 100 mg PO BID #14 capsule 06/22/18 Anemia: No Asthma: No Cancer: No Cardiac Disorders: No CVA: No COPD: No CHF: No Dementia: No Diabetes: No GI Disorders: No Disorders: No HTN: Yes Hypercholesterolemia: No Liver Disease: No Seizures: No Thyroid Disease: Yes (HYPOTHROIDISM) - Surgical History Abdominal Surgery: Yes (Myomectomy) Appendectomy: No Cardiac Surgery: No Cholecystectomy: No Lung Surgery: No Neurologic Surgery: No Orthopedic Surgery: Yes (fx wrist,OPEN REDUCTION) - Immunization History Immunization Up to Date: Yes - Suicide/Smoking/Psychosocial Hx Smoking Status: Yes Smoking History: Current every day smoker Have you smoked in the past 12 months: Yes Number of Cigarettes Smoked Daily: 20 Information on smoking cessation initiated: No 'Breaking Loose' booklet given: 06/20/18 Hx Alcohol Use: Yes (3x a week) Drug/Substance Use Hx: No Substance Use Type: Alcohol Hx Substance Use Treatment: Yes Cardiac Specific PMH - Complaint Specific PMHX Abdominal Aortic Aneurysm: No Angina: No Cardiac Arrhythmia: No Cardiac Stent: No GERD: No Myocardial Infarction: No Pacemaker: No Pulmonary Embolus: No Valvular Heart Disease: No Peripheral Vascular Disease: No Review of Systems - Review of Systems Able to Perform ROS?: No (Patient uncooperative) Is the patient limited Macedonian proficient: No HEENTM: Yes: Ear Pain (left ear pain, cannot characterize further) Cardiac (ROS): Yes: Chest Pain ("heaviness" for two weeks) *Physical Exam - Vital Signs Last Vital Signs Temp Pulse Resp BP Pulse Ox 97.4 F L 99 H 18 113/68 96 04/26/19 15:02 04/26/19 15:02 04/26/19 15:02 04/26/19 15:02 04/26/19 15:02 - Physical Exam Comments: 04/26/19 16:35 Exam limited by patient cooperation Vitals reviewed; AFVSS Gen: Obese woman, sitting in bed, smells of cigarette smoke, MSE: alert and oriented, uncooperative, guarded CV: pt winces when stethoscope is placed over left chest, no bruising / rash / crepitus, does not react with second placement. RRR, normal s1/s2, no adventitious heart sounds Pulm: CTABL, no wheezes, some fine right midfield crackles, normal work of breathing - does not appear SOB at time of exam Neuro: EOMI, cranial nerves grossly intact, MAEE Ext: warm and well perfused, no clubbing / cyanosis / edema Pulses: Radial and DP 2+ bilaterally Heart Score/ECG Review - History History: Highly suspicious - Electrocardiogram EKG: Normal - Age Age: 45-65 - Risk Factors Risk Factors Heart Score: Yes Hx Hypertension, Yes Smoking History, Yes Hx Obesity Based on the list above the patient has:: >/=3 risk factors or Hx atherosclerotic disease - Troponin Troponin: </= normal limit - Score Heart Score - Total: 5 ED Treatment Course - LABORATORY CBC & Chemistry Diagram: 04/26/19 15:33 04/26/19 15:33 - ADDITIONAL ORDERS Additional order review: Laboratory Results 04/26/19 04/26/19 15:33 15:33 PT with INR 11.60 INR 0.98 Sodium 138 Potassium 3.6 Chloride 101 Carbon Dioxide 23 Anion Gap 14 BUN 14.6 Creatinine 0.7 Est GFR (CKD-EPI)AfAm 116.27 Est GFR (CKD-EPI)NonAf 100.32 Random Glucose 133 H Calcium 9.2 Magnesium 2.0 Total Bilirubin 0.3 AST 91 H ALT 92 H Alkaline Phosphatase 95 Creatine Kinase 70 Troponin I < 0.02 Total Protein 7.5 Albumin 3.6 04/26/19 15:33 RBC 3.83 MCV 96.9 H MCHC 35.0 RDW 13.5 MPV 7.0 L Neutrophils % 71.9 Lymphocytes % 21.6 Monocytes % 3.6 L Eosinophils % 2.3 Basophils % 0.6 - Medications Given in the ED: ED Medications Discontinued Medications Generic Name Dose Route Start Last Admin Trade Name Freq PRN Reason Stop Dose Admin Aspirin 162 mg 04/26/19 15:05 04/26/19 15:14 Asa - PO 04/26/19 15:06 162 mg ONCE ONE Administration Chlordiazepoxide HCl 50 mg 04/26/19 16:44 04/26/19 17:05 Librium - PO 04/26/19 16:45 50 mg ONCE ONE Administration Medical Decision Making - Medical Decision Making 04/26/19 16:43 49yo woman smoker with pmh HTN, bipolar disorder, anxiety s/p partial hysterectomy presenting with subacute chest pain and shortness of breath. History concerning for worsening exertional heavy chest pain with shortness of breath in patient with significant risk factors (Heart score 5). Physical exam unremarkable, limited by patient cooperation. Concerning for angina, r/o ACS. Less likely, costochondritis, trauma, lung pathology - EKG, Troponin - CBC, CMP, PT, PTT - CXR PA&Lat - Serum Preg - O2, ASA 04/26/19 16:52 - Trop negative - CBC, CMP. PT, PTT all wnl - EKG without ischemic changes - Pt endorses recent heavy alcohol use, Librium for potential withdrawal - Serum Preg pending - CXR pending 04/26/19 18:20 Dispo: Admit med/surg, r/o ACS *DC/Admit/Observation/Transfer Diagnosis at time of Disposition: Chest pain - Discharge Dispostion Condition at time of disposition: Good Decision to Admit order: Yes Decision to Admit order Date/Time: Decision to Admit Order Category Date Time Status Decision to Admit to Hospital Routine Admission 04/26/19 18:19 Ordered - Referrals Referrals: Scott Sarabia MD [Primary Care Provider] - - Patient Instructions - Post Discharge Activity
[2019-04-26] MEDS ORDERED: chlordiazePOXIDE HCL 25 MG CAPSULE PO ONE (16:44)
--- NOTE | 2019-04-26 16:57 | PDOC ---
Documentation entered by [place] SCRIBE, acting as scribe for Sabas Guthrie MD. Sabas Guthrie MD: This documentation has been prepared by the Reinier lopez Daniel, SCRIBE, under my direction and personally reviewed by me in its entirety. I confirm that the documentation accurately reflects all work, treatment, procedures, and medical decision making performed by me. Attending Attestation - Resident Resident Name: [email or web address] - ED Attending Attestation I have performed the following: I have examined & evaluated the patient, The case was reviewed & discussed with the resident, I agree w/resident's findings & plan, Exceptions are as noted - HPI HPI: 04/26/19 16:47 49 F with h/o HTN, HLD, bipolar d/o presenting to ED with chest pain and shortness of breath. Pt states that she has been under immense stress recently, having been caring for her parents who are hospitalized. Pt states that she has been having pressure-like chest pain that is worse with exertion. Pt also endorses dyspnea on exertion. Denies any SOB at rest. Denies leg swelling. Denies any chest pain currently. Pt also states that she has been having difficulty sleeping at night due to life stressors. She admits to drinking heavily over the past week. Denies any symptoms of withdrawal currently but states she has had withdrawal in the past. Denies SI/HI/AVH. - Physicial Exam PE: 04/26/19 16:55 "GENERAL: Awake, alert, and fully oriented, in no acute distress. HEAD: No signs of trauma EYES: PERRLA, EOMI, sclera anicteric, conjunctiva clear ENT: Auricles normal inspection, hearing grossly normal, nares patent, oropharynx clear without exudates. Moist mucosa NECK: Nontender, no stepoffs, Normal ROM, supple, no lymphadenopathy, JVD, or masses LUNGS: Breath sounds equal, clear to auscultation bilaterally. No wheezes, and no crackles HEART: Regular rate and rhythm, normal S1 and S2, no murmurs, rubs or gallops ABDOMEN: Soft, nontender, normoactive bowel sounds. No guarding, no rebound. No masses EXTREMITIES: Normal range of motion, no edema. No clubbing or cyanosis. No cords, erythema, or tenderness NEUROLOGICAL: Cranial nerves II through XII intact. 5/5 strength and sensation in all extremities, Normal speech, normal gait, normal cerebellar function SKIN: Warm, Dry, normal turgor, no rashes or lesions noted. - Medical Decision Making 04/26/19 16:56 49 F with chest pain and BARBA. EKG is unremarkable, but pt has risk factors for ACS. No PE risk factors. No evidence of volume overload on exam. - Labs, trop - CXR - Admit
[2019-04-26] MEDS ORDERED: chlordiazePOXIDE HCL 25 MG CAPSULE ONE (17:01)
[2019-04-26 19:08] VITALS: BP 108/61; PULSE 97; TEMP 98.2
--- NOTE | 2019-04-26 21:50 | HP ---
Admitting History and Physical - Primary Care Physician PCP: Scott Sarabia - Admission Chief Complaint: Chest Pain, SOB History of Present Illness: This is a 49 y/o woman with a PMHx of HTN, Anxiety, Bipolar, Hypothyroidism. Who presents to the ED with CP and SOB x 2 weeks. Patient refused to provide HPI. Patient is refusing to allow performance of PE at this time. History Source: Medical Record Limitations to Obtaining History: Uncooperative - Past Medical History Cardiovascular: Yes: HTN ...LMP: 03/12/14 Psych: Yes: Anxiety, Bipolar, Depression Endocrine: Yes: Hypothyroidism - Smoking History Smoking history: Current every day smoker Have you smoked in the past 12 months: Yes Aproximately how many cigarettes per day: 20 - Alcohol/Substance Use Hx Alcohol Use: Yes (3x a week) - Social History ADL: Independent History of Recent Travel: No Home Medications - Allergies Allergies/Adverse Reactions: Allergies Allergy/AdvReac Type Severity Reaction Status Date / Time Penicillins Allergy Verified 04/26/19 15:05 - Home Medications Home Medications: Ambulatory Orders Divalproex [Depakote -] 500 mg PO AM 03/14/18 Levothyroxine [Synthroid -] 75 mcg PO DAILY 03/14/18 Quetiapine Fumarate [Seroquel] 300 mg PO DAILY 03/14/18 Sertraline HCl [Zoloft] 50 mg PO DAILY 03/14/18 Divalproex [Depakote -] 1,000 mg PO HS 04/26/19 Hydrochlorothiazide [Hctz -] 25 mg PO DAILY 04/26/19 Olmesartan Medoxomil 20 mg PO DAILY 04/26/19 Family Disease History - Family Disease History Family History: Unable to Obtain Review of Systems - Review of Systems Constitutional: reports: No Symptoms Eyes: reports: No Symptoms HENT: reports: No Symptoms Neck: reports: No Symptoms Cardiovascular: reports: Chest Pain, Shortness of Breath Respiratory: reports: SOB Gastrointestinal: reports: No Symptoms Genitourinary: reports: No Symptoms Breasts: reports: No Symptoms Reported Musculoskeletal: reports: No Symptoms Integumentary: reports: No Symptoms Neurological: reports: No Symptoms Endocrine: reports: No Symptoms Hematology/Lymphatic: reports: No Symptoms Psychiatric: reports: No Symptoms Physical Examination Vital Signs: Vital Signs Temperature 98.2 F 04/26/19 19:02 Pulse Rate 97 H 04/26/19 19:02 Respiratory Rate 18 04/26/19 15:02 Blood Pressure 108/61 04/26/19 19:02 O2 Sat by Pulse Oximetry (%) 96 04/26/19 19:02 Findings/Remarks: Patient is refusing to be examined at this time Neurological: Yes: Alert, Oriented Psychiatric: Yes: Alert, Oriented, Agitated Labs: CBC, BMP 04/26/19 15:33 04/26/19 15:33 Laboratory Results - last 24 hr 04/26/19 04/26/19 04/26/19 15:33 15:33 15:33 WBC 6.1 RBC 3.83 Hgb 13.0 Hct 37.1 MCV 96.9 H MCH 33.9 H MCHC 35.0 RDW 13.5 Plt Count 169 MPV 7.0 L Absolute Neuts (auto) 4.4 Neutrophils % 71.9 Lymphocytes % 21.6 Monocytes % 3.6 L Eosinophils % 2.3 Basophils % 0.6 Nucleated RBC % 0 PT with INR 11.60 INR 0.98 Sodium 138 Potassium 3.6 Chloride 101 Carbon Dioxide 23 Anion Gap 14 BUN 14.6 Creatinine 0.7 Est GFR (CKD-EPI)AfAm 116.27 Est GFR (CKD-EPI)NonAf 100.32 Random Glucose 133 H Calcium 9.2 Magnesium 2.0 Total Bilirubin 0.3 AST 91 H ALT 92 H Alkaline Phosphatase 95 Creatine Kinase 70 Troponin I < 0.02 Total Protein 7.5 Albumin 3.6 Urine HCG, Qual Alcohol, Quantitative 04/26/19 04/26/19 04/26/19 20:11 21:33 21:33 WBC RBC Hgb Hct MCV MCH MCHC RDW Plt Count MPV Absolute Neuts (auto) Neutrophils % Lymphocytes % Monocytes % Eosinophils % Basophils % Nucleated RBC % PT with INR INR Sodium Potassium Chloride Carbon Dioxide Anion Gap BUN Creatinine Est GFR (CKD-EPI)AfAm Est GFR (CKD-EPI)NonAf Random Glucose Calcium Magnesium Total Bilirubin AST ALT Alkaline Phosphatase Creatine Kinase Troponin I < 0.02 Total Protein Albumin Urine HCG, Qual Negative Alcohol, Quantitative < 3.0 Intake & Output 04/24/19 04/25/19 04/26/19 04/27/19 23:59 23:59 23:59 23:59 Weight 90.718 kg Current Medications Generic Name Dose Route Start Last Admin Trade Name Freq PRN Reason Stop Dose Admin Aspirin 81 mg 04/27/19 10:00 Asa - PO DAILY ANUPAMA Imaging - Results Chest X-ray: Image Reviewed EKG: Image Reviewed Problem List - Problems (1) Chest pain Code(s): R07.9 - CHEST PAIN, UNSPECIFIED (2) HTN (hypertension) Code(s): I10 - ESSENTIAL (PRIMARY) HYPERTENSION (3) Bipolar disorder Code(s): F31.9 - BIPOLAR DISORDER, UNSPECIFIED (4) Anxiety Code(s): F41.9 - ANXIETY DISORDER, UNSPECIFIED (5) Hypothyroidism Code(s): E03.9 - HYPOTHYROIDISM, UNSPECIFIED (6) Tobacco dependence due to cigarettes Code(s): F17.210 - NICOTINE DEPENDENCE, CIGARETTES, UNCOMPLICATED (7) Obesity (BMI 30.0-34.9) Code(s): E66.9 - OBESITY, UNSPECIFIED Assessment/Plan This is a 49 y/o woman placed in Tele Observation for Chest Pain r/o ACS for further evaluation of their emergent condition. Plan: Admit: Chest Pain r/o ACS HEART Score 4 CONCEPCION 2 Serial Enzymes, 1st negx1 EKG reviewed Chest Xray image reviewed Appreciate Cardiology consult Echo in am Will defer Stress Test to cardiology Lipid Profile, Mg in am Asa given in ED, will continue UDT, Alcohol level Librium give in ED Monitor for DTs- secondary to heavy alcohol use per pt Smoking Cessation Nicotine Patch Monitor CBC, BMP FEN- PO fluids as tolerated, Replete lytes prn, Low Na Diet DVT ppx- OOB, SCDs, consider AC if LOS > 48hrs Dispo: Observation Visit type - Emergency Visit Emergency Visit: Yes ED Registration Date: 04/26/19 Care time: The patient presented to the Emergency Department on the above date and was hospitalized for further evaluation of their emergent condition. - New Patient This patient is new to me today: Yes Date on this admission: 04/26/19 - Critical Care Critical Care patient: No
[2019-04-27 03:02] LABS: COCAINE, UR NEGATIVE ng/ml (CUTOFF=300); METHADONE, UR NEGATIVE ng/ml (CUTOFF=300); OPIATES, URI NEGATIVE ng/ml (CUTOFF=300); PHENCYCLIDINE,URINE NEGATIVE ng/ml (CUTOFF=25); URINE AMPHETAMINES NEGATIVE ng/ml (CUTOFF=500); URINE BARBITURATES NEGATIVE ng/ml (CUTOFF=200); URINE BENZODIAZEPINES NEGATIVE ng/ml (CUTOFF=200)
[2019-04-27] MEDS ORDERED: LEVOTHYROXINE NA 75 MCG TABLET (FP) PO SCH (07:00)
[2019-04-27] MEDS ORDERED: DIVALPROEX SODIUM 500 MG TABLET E.C. PO ONE (07:23)
[2019-04-27] MEDS ORDERED: ACETAMINOPHEN 325 MG TABLET (FP) PO PRN (07:23)
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
[2019-04-27] MEDS ORDERED: QUEtiapine FUMARATE 300 MG TABLET PO SCH (10:00)
[2019-04-27] MEDS ORDERED: VALSARTAN 80 MG TABLET (UD) PO SCH (10:00)
[2019-04-27] MEDS ORDERED: HYDROCHLOROTHIAZIDE 12.5 MG CAPSULE (FP) PO SCH (10:00)
[2019-04-27] MEDS ORDERED: DIVALPROEX SODIUM 500 MG TABLET E.C. PO SCH (10:00)
[2019-04-27] MEDS ORDERED: ASPIRIN 81 MG CHEWABLE TABLETS PO SCH (10:00)
[2019-04-27] MEDS ORDERED: SERTRALINE HCL 50 MG TABLET (FP) PO SCH (10:00)
--- NOTE | 2019-04-27 13:37 | EKG ---
Test Reason : Blood Pressure : / mmHG Vent. Rate : 097 BPM Atrial Rate : 097 BPM P-R Int : 152 ms QRS Dur : 088 ms QT Int : 362 ms P-R-T Axes : 055 013 039 degrees QTc Int : 459 ms NORMAL SINUS RHYTHM NORMAL ECG WHEN COMPARED WITH ECG OF 14-MAR-2018 07:02, NO SIGNIFICANT CHANGE WAS FOUND Confirmed by HAYDER FERRARO MD ([id number]) on 04/27/2019 1:36:58 PM Referred By: Confirmed By:HAYDER FERRARO MD
== END 2019-04-27 07:30 | disposition left against medical advice (07) | DRG 880 ==
LOC: JER 14:57 → JERBED 18:19 → OBSVTOIN 04-27 07:24
PROVIDERS: ADMIT Family Medicine; ATTEND Family Medicine
DX: F41.9 Anxiety disorder, unspecified (principal); R07.9 Chest pain, unspecified; F31.9 Bipolar disorder, unspecified; F17.200 Nicotine dependence, unspecified, uncomplicated; R06.00 Dyspnea, unspecified; E03.9 Hypothyroidism, unspecified; E66.9 Obesity, unspecified; Z68.33 Body mass index [BMI] 33.0-33.9, adult; I10 Essential (primary) hypertension
CPT/HCPCS: 36415; 71046-TC-FY; 80053; 80307; 82550; 83735; 84484; 84703; 85025; 85610; 93005; 93010; 99284-25; G0378

== ENCOUNTER 2022-09-23 07:01 | Day surgery (SDC) | payer OTHER ==
[2022-09-16 14:58] VITALS: BMI 30.7
[2022-09-23 08:05] VITALS: RESP 16
[2022-09-23] MEDS ORDERED: LIDOCAINE HCL 1%, 10 MG/ML (20ML VIAL) ONE (09:09)
[2022-09-23] MEDS ORDERED: BUPIVACAINE HCL 50 ML ONE (09:09)
[2022-09-23] MEDS ORDERED: PROPOFOL 20 ML ONE ×2 (09:12→09:57)
[2022-09-23] MEDS ORDERED: MIDAZOLAM HCL 2 MG/2 ML SINGLE DOSE VIAL ONE (09:13)
[2022-09-23] MEDS ORDERED: CLINDAMYCIN PHOSPHATE 900 MG/6 ML VIAL IVPB ONE (09:14)
[2022-09-23] MEDS ORDERED: DEXAMETHASONE SOD PHOSPHATE 4 MG/1 ML VIAL ONE (09:14)
[2022-09-23] MEDS ORDERED: KETOROLAC TROMETHAMINE 30 MG/1 ML VIAL ONE (09:14)
[2022-09-23] MEDS ORDERED: ONDANSETRON 4 MG/2 ML VIAL ONE (09:14)
[2022-09-23 10:23] VITALS: TEMP 97.9
[2022-09-23 11:43] VITALS: BP 135/85; PULSE 81
== END 2022-09-23 11:11 | disposition left against medical advice (07) ==
LOC: FASU 07:01
PROVIDERS: ATTEND Orthopaedic Surgery
PROC: 0LN80ZZ Release Left Hand Tendon, Open Approach (ICD-10-PCS; principal; 2022-09-23 09:35)
DX: M65.322 Trigger finger, left index finger (principal)
CPT/HCPCS: 88304-TC

== ENCOUNTER 2023-07-30 04:11 | Emergency (ER) | payer OTHER ==
[2023-07-30 04:30] VITALS: BP 148/82; PULSE 92; RESP 18; TEMP 98; BMI 31.6
[2023-07-30] MEDS ORDERED: ACETAMINOPHEN 500 MG TABLET (FP) PO ONE (04:50)
== END 2023-07-30 05:06 | disposition left against medical advice (07) ==
LOC: JER 04:11
DX: M25.571 Pain in right ankle and joints of right foot (principal); G89.29 Other chronic pain; S93.401A Sprain of unspecified ligament of right ankle, initial encounter; X58.XXXA Exposure to other specified factors, initial encounter
CPT/HCPCS: 99281-25

== ENCOUNTER 2024-07-15 10:29 | Emergency (ER) | payer OTHER ==
[2024-07-15 10:49] VITALS: TEMP 98.4; BMI 32.5
[2024-07-15 12:07] VITALS: BP 143/88; PULSE 88; RESP 19
== END 2024-07-15 12:52 | disposition home or self-care (01) ==
LOC: JER 10:29
DX: R09.81 Nasal congestion (principal); H92.01 Otalgia, right ear; B34.9 Viral infection, unspecified; Z20.822 Contact with and (suspected) exposure to COVID-19
CPT/HCPCS: 0241U-QW; 99283-25